=== PATIENT | female | born 1990 | race Two or more races ===

== ENCOUNTER 2024-03-16 06:19 | Emergency (ER) | payer BC, OTHER ==
[~2024-03-16] VITALS: Ht 165.1 cm; Wt 157.5 kg
[2024-03-16 06:37] VITALS: BP 139/92; PULSE 101; RESP 18; TEMP 98.6
[2024-03-16] MEDS: methylPREDNISolone SOD SUCC 125 MG/2 ML VL IM ONE (07:03)
[2024-03-16] MEDS: EPINEPHrine HCL 1 MG/1 ML AMP SC ONE (07:03)
[2024-03-16 07:06] VITALS: O2SAT 97
[2024-03-16] MEDS ORDERED: PRED20TA2 PO (07:07)
== END 2024-03-16 07:51 | disposition home or self-care (01) ==
LOC: ER 06:19
DX: T78.40XA Allergy, unspecified, initial encounter (principal); Z90.49 Acquired absence of other specified parts of digestive tract; X58.XXXA Exposure to other specified factors, initial encounter
CPT/HCPCS: 96372; 99284; J0171; J2919